=== PATIENT | male | born 1995 | race Caucasian/White ===

== ENCOUNTER 2022-02-19 13:01 | Emergency (ER) | payer OTHER ==
[~2022-02-19] VITALS: Ht 175.3 cm; Wt 75.0 kg
[2022-02-19] MEDS ORDERED: BACLOFEN 10 MG TABLET PO ONE (14:15)
[2022-02-19] MEDS ORDERED: ACETAMINOPHEN/CODEINE 300-30 MG TABLET PO ONE (14:15)
[2022-02-19] MEDS ORDERED: KETOROLAC TROMETHAMINE 60 MG/2 ML VIAL IM ONE (14:15)
[2022-02-19] MEDS ORDERED: IBUP-1554 PO (15:09)
[2022-02-19] MEDS ORDERED: BACL10TA PO (15:09)
[2022-02-19] MEDS ORDERED: ACET-2080 PO (15:09)
[2022-02-19 15:27] VITALS: BP 112/74
== END 2022-02-19 15:29 | disposition home or self-care (01) ==
LOC: EMS 13:01
DX: S39.012A Strain of muscle, fascia and tendon of lower back, initial encounter (principal); X50.0XXA Overexertion from strenuous movement or load, initial encounter; Y93.89 Activity, other specified; Y92.89 Other specified places as the place of occurrence of the external cause; Y99.8 Other external cause status
CPT/HCPCS: 99283; 72100; 96372; J1885